=== PATIENT | male | born 1995 | race African-American/Black ===

== ENCOUNTER 2022-02-07 18:28 | Emergency (ER) | payer OTHER ==
[~2022-02-07] VITALS: Ht 175.3 cm; Wt 82.0 kg
[2022-02-07] MEDS ORDERED: ONDANSETRON HCL 4 MG/2 ML VIAL IV ONE (20:45)
[2022-02-07] MEDS ORDERED: MORPHINE SULFATE 4 MG/ML SYR/VIAL IV ONE (20:45)
[2022-02-07] MEDS ORDERED: ONDANSETRON ODT 4 MG TAB PO ONE (21:00)
[2022-02-07] MEDS ORDERED: MORPHINE SULFATE 4 MG/ML SYR/VIAL IM ONE (21:00)
[2022-02-07] MEDS ORDERED: MIDAZOLAM HCL 5 MG/ML-1ML VIAL IV ONE (21:30)
[2022-02-08] MEDS ORDERED: IBUP800T27 PO (01:07)
[2022-02-08 01:33] VITALS: BP 154/70
== END 2022-02-08 01:55 | disposition home or self-care (01) ==
LOC: ER 18:28
DX: S53.105A Unspecified dislocation of left ulnohumeral joint, initial encounter (principal); E11.9 Type 2 diabetes mellitus without complications; Z79.1 Long term (current) use of non-steroidal anti-inflammatories (NSAID); V00.311A Fall from snowboard, initial encounter; Y93.23 Activity, snow (alpine) (downhill) skiing, snowboarding, sledding, tobogganing and snow tubing; Y92.89 Other specified places as the place of occurrence of the external cause; Y99.8 Other external cause status
CPT/HCPCS: 24600; 73080; 96372; 96374; 99285; J2250; J2270; Q0162; J2405